=== PATIENT | male | born 1985 | race Caucasian/White ===

== ENCOUNTER 2016-09-24 14:25 | Observation (INO) ==
[2016-09-24] MEDS ORDERED: 0.9 % Sodium Chloride 1,000 ML IVC ONE (14:37)
[2016-09-24 15:17] LABS: Basophils # 0.1 K/mcL (0.0-0.2); Basophils % 0.5 %; Eosinophils # 0.1 K/mcL (0.0-0.6); Eosinophils % 0.8 %; Hematocrit 46.1 % (37.5-50.1); Immature Granulocytes % 0.5 % (0-4); Lymphocytes # 1.3 K/mcL (0.6-4.6); Lymphocytes % 12.1 %; Mean Corpuscular HGB Conc 34.7 g/dL (31.6-35.5); Mean Corpuscular Hemoglobin 30.9 pg (28.0-33.3); Mean Corpuscular Volume 89.2 fL (83.0-100.0); Mean Platelet Volume 9.5 fL (9.4-12.4); Monocytes # 0.9 K/mcL (0.0-1.3); Neutrophils # 8.5 K/mcL (1.6-8.9); Platelet Count 316 K/mcL (140-400); Red Blood Count 5.17 M/mcL (4.19-5.50); Red Cell Distribution Width 11.7 % (11.5-14.5); Segmented Neutrophils % 78.1 %
[2016-09-24 15:31] LABS: Alanine Aminotransferase 43 Units/L (0-55); Albumin 4.3 g/dL (3.5-5.0); Albumin/Globulin Ratio 1.1 (1.1-2.2); Alkaline Phosphatase 99 Units/L (38-126); Aspartate Amino Transferase 36 Units/L (5-34); BUN/Creatinine Ratio 16 (6-26); Bilirubin,Direct 0.4 mg/dL (0.0-0.5); Bilirubin,Indirect 0.5 mg/dL (0.0-1.2); Bilirubin,Total 0.9 mg/dL (0.2-1.2); Blood Urea Nitrogen 21 mg/dL (8-26); Calcium 9.6 mg/dL (8.6-10.8); Carbon Dioxide 27 mEq/L (19-29); Chloride 103 mEq/L (98-109); Globulin 3.8 g/dL (2.4-3.5); Glucose 78 mg/dL (70-99); Osmolality,Calculated 290 (280-300); Sodium 139 mEq/L (136-145); Total Protein 8.1 g/dL (6.0-8.3); eGFR For African Americans > 60 (> 60); eGFR For Non-African Americans > 60 (> 60)
[2016-09-24 15:32] LABS: Acetaminophen < 1.0 mcg/mL (10-30); Ethanol < 10 mg/dL (0-10); Salicylate < 5.0 mg/dL (15-30)
--- NOTE | 2016-09-24 15:54 | Emergency Department Note ---
Overdose - Differential Diagnosis Likely: cocaine intoxication, intentional overdose, accidental drug ingestion - Medical Records Medical records reviewed: Yes I reviewed the patient's medical records. - Lab Data Lab results reviewed: Yes I reviewed the patient's lab results. Result diagrams: 09/24/16 15:02 09/24/16 15:02 Lab Results 09/24/16 09/24/16 Range/Units 15:02 15:02 WBC 10.9 (4.3-11.1) K/mcL RBC 5.17 (4.19-5.50) M/mcL Hgb 16.0 (12.9-16.9) g/dL Hct 46.1 (37.5-50.1) % MCV 89.2 (83.0-100.0) fL MCH 30.9 (28.0-33.3) pg MCHC 34.7 (31.6-35.5) g/dL RDW 11.7 (11.5-14.5) % Plt Count 316 (140-400) K/mcL MPV 9.5 (9.4-12.4) fL Immature Gran % 0.5 (0-4) % Seg Neutrophils % 78.1 % Lymphocytes % 12.1 % Monocytes % 8.0 % Eosinophils % 0.8 % Basophils % 0.5 % Neutrophils # 8.5 (1.6-8.9) K/mcL Lymphocytes # 1.3 (0.6-4.6) K/mcL Monocytes # 0.9 (0.0-1.3) K/mcL Eosinophils # 0.1 (0.0-0.6) K/mcL Basophils # 0.1 (0.0-0.2) K/mcL Sodium 139 (136-145) mEq/L Potassium 4.0 (3.5-4.5) mEq/L Chloride 103 (98-109) mEq/L Carbon Dioxide 27 (19-29) mEq/L BUN 21 (8-26) mg/dL Creatinine 1.30 H (0.72-1.25) mg/dL Est GFR ( Amer) > 60 (> 60) Est GFR (Non-Af Amer) > 60 (> 60) BUN/Creatinine Ratio 16 (6-26) Glucose 78 (70-99) mg/dL Calculated Osmolality 290 (280-300) Calcium 9.6 (8.6-10.8) mg/dL Total Bilirubin 0.9 (0.2-1.2) mg/dL Direct Bilirubin 0.4 (0.0-0.5) mg/dL Indirect Bilirubin 0.5 (0.0-1.2) mg/dL AST 36 H (5-34) Units/L ALT 43 (0-55) Units/L Alkaline Phosphatase 99 (38-126) Units/L Serum Total Protein 8.1 (6.0-8.3) g/dL Albumin 4.3 (3.5-5.0) g/dL Globulin 3.8 H (2.4-3.5) g/dL Albumin/Globulin Ratio 1.1 (1.1-2.2) Salicylates < 5.0 L (15-30) mg/dL Acetaminophen < 1.0 L (10-30) mcg/mL Ethyl Alcohol < 10 (0-10) mg/dL - Radiology Data Radiology results reviewed: Yes I reviewed the patient's radiology results. - EKG Data EKG attestation: Yes I reviewed and interpreted this EKG. EKG shows normal: sinus rhythm Rate: normal Rhythm: NSR [place]/QRS: normal Interpretation: no acute changes Overdose HPI - General Chief Complaint: ED Overdose Stated Complaint: OD Time Seen by Provider: 09/24/16 14:32 Source: patient, EMS Limitations: no limitations Nursing Notes Reviewed: Yes Vital Signs Reviewed: Yes - History of Present Illness Pt Subjective Complaint: accidental overdose Onset (ago): Just SPO[employer] Intent: unwilling to say How Overdose Was Discovered: family/friend present at time Treatments Prior to Arrival: narcan (6 mg) - Related Data Allergies Allergy/AdvReac Type Severity Reaction Status Date / Time No Known Allergies Allergy Verified 09/24/16 14:31 All systems ED: reviewed and negative except as stated. Constitutional: Denies: fever, chills Gastrointestinal: Denies: nausea, vomiting Past Medical History - Past Medical History Source: patient, nursing notes reviewed Medical history: Reports: no medical history - Social History Smoking Status: Current every day smoker Alcohol use: Reports: occasionally Drug use: Reports: none Physical Exam - General Limitations: no limitations General appearance: alert - Head Head exam: atraumatic, normocephalic, normal inspection - Eye Eye exam: Present: normal appearance, PERRL, EOMI - Expanded Eye Exam Pupils: Left: reactive - ENT ENT exam: normal exam, normal oropharynx, mucous membranes moist - Expanded ENT Exam External ear exam: Present: normal external inspection Mouth exam: Present: normal external inspection Teeth exam: Present: normal inspection Throat exam: Present: normal inspection - Neck Neck exam: Present: normal inspection, full ROM, trachea midline - Chest Chest inspection: Present: normal inspection, symmetric chest wall rise - Respiratory Respiratory exam: Present: normal lung sounds bilaterally - Cardiovascular Cardiovascular exam: Present: regular rate, normal rhythm, normal heart sounds - Abdominal Exam Abdominal exam: Present: soft, Non-Tender. Absent: tenderness, distention, guarding, rebound, rigidity - Extremities Exam Extremities exam: Present: normal inspection, full ROM. Absent: tenderness, pedal edema - Expanded Upper Extremity Exam Shoulder exam: Present: normal inspection, full ROM Arm exam: Present: normal inspection, full ROM Elbow exam: Present: normal inspection, full ROM Forearm/Wrist exam: Present: normal inspection, full ROM Hand exam: Present: normal inspection, full ROM Vascular exam: Normal: capillary refill, radial pulse - Expanded Lower Extremity Exam Hip/Pelvis exam: Present: normal inspection, full ROM Upper leg exam: Present: normal inspection, full ROM Knee exam: Present: normal inspection, full ROM Lower leg exam: Present: normal inspection, full ROM Ankle exam: Present: normal inspection, full ROM Foot/toe exam: Present: normal inspection, full ROM Neurovascular/Tendon exam: Absent: motor deficit, sensory deficit, tendon deficit - Back Exam Back exam: Present: normal inspection, full ROM. Absent: tenderness - Neurological Exam Neurological exam: Present: alert, oriented X3 - Expanded Neurological Exam Patient oriented to: Present: person, place, time Coma Scale Eye Opening: Spontaneous Coma Scale Motor Response: Obeys Commands Coma Scale Verbal Response: Oriented Coma Scale Total: 15 - Psychiatric Psychiatric exam: Present: normal affect, normal mood - Skin Skin exam: Present: warm, dry, intact, normal color Course Course Narrative: Patient has received a total of 10 mg of Narcan he will wake up for 10-15 minutes and then go back to sleep. He is arousable but I feel that he is to unsafe for discharge home and will admit him to the hospitalist service for overnight observation Vital Signs Temperature 97.6 F 09/24/16 14:27 Pulse Rate 90 09/24/16 14:27 Respiratory Rate 16 09/24/16 14:27 Blood Pressure 105/98 09/24/16 14:27 O2 Sat by Pulse Oximetry 94 09/24/16 14:27 Temperature 97.6 F 09/24/16 14:27 Pulse Rate 70 09/24/16 16:32 Respiratory Rate 16 09/24/16 16:32 Blood Pressure 128/67 09/24/16 16:32 O2 Sat by Pulse Oximetry 97 09/24/16 16:32 Oxygen Delivery Oxygen Delivery Room Air Disposition Clinical Impression: Poisoning by opiate or related narcotic Disposition: Admitted As Inpatient Condition: Good Instructions: Adult Overdose (ED) Referrals: NO,PCP [Primary Care Provider] - Forms: ED Satisfaction Letter Time of Disposition: 15:52
[2016-09-24 18:13] LABS: Bilirubin,Urine Negative (Negative); Blood,Urine Negative (Negative); Clarity,Urine Clear (Clear); Color,Urine Yellow (Yellow); Glucose,Urine (UA) Normal (Normal); Ketones,Urine 40 mg/dL (Negative); Leukocyte Esterase,Urine Negative (Negative); Nitrite,Urine Negative (Negative); PH,Urine 5.5 pH Units (5.0-8.0); Protein,Urine Negative (Neg-Trace); Specific Gravity,Urine 1.012 (1.010-1.025); Urobilinogen,Urine Normal (Normal)
[2016-09-24 18:31] LABS: Amphetamine Screen,Urine Negative ng/mL (Cutoff=1000); Barbiturate Screen,Urine Negative ng/mL (Cutoff=200); Benzodiazepines Screen,Urine Positive ng/mL (Cutoff=200); Cannabinoid Screen,Urine Positive ng/mL (Cutoff = 50); Cocaine Screen,Urine Positive ng/mL (Cutoff= 300); Opiate Screen,Urine Positive ng/mL (Cutoff=300); Phencyclidine Screen,Urine Negative ng/mL (Cutoff=25)
[2016-09-24] MEDS ORDERED: Acetaminophen 325 MG TABLET PO PRN (20:52)
[2016-09-24] MEDS ORDERED: Naloxone 0.4 MG/ML INJ IVP PRN (20:52)
[2016-09-24] MEDS ORDERED: *HR* LORazepam 2 MG/ML VIAL IVP PRN ×3 (20:55→21:56)
[2016-09-24] MEDS ORDERED: 0.9 % Sodium Chloride 1,000 ML IVC SCH (21:00)
--- NOTE | 2016-09-24 21:11 | Event Note ---
Date of Encounter: 09/24/16
--- NOTE | 2016-09-24 21:14 | Internal Med History&Physical ---
<Ricardo Moreland - Last Filed: 09/24/16 21:55> Date of Encounter: 09/24/16 Time of Encounter: 08:30 Assessment and Plan (1) Drug overdose Current visit: Yes Status: Acute - Found decreased mentation by EMS with only temporary response to Narcan in ED. - UDS positive for opiates, benzodiazepam, cocaine and marijuana. - Patient only admits Xanax and marijuana and denies pain medication or IV drug use. - Mental status improves as patient now is more awake. - Patient denies depression or suicidal ideation at this time. - Patient is admitted for overnight observation given the safety concern. - Closely monitor with telemetry. Qualifiers: Encounter type: initial encounter Injury intent: undetermined intent Qualified Code(s): T50.904A - Poisoning by unspecified drugs, medicaments and biological substances, undetermined, initial encounter (2) GALILEA (acute kidney injury) Current visit: Yes Status: Acute - SCr 1.30 on initial presentation compared to baseline (0.90) in the past. - Likely secondary to dehydration. Early phase of rhabdomylosis from drug overdose is also possible. - Will check CK. - Continue to hydration with IV NS. - Closely monitor electrolytes and renal function. (3) Alcohol abuse Current visit: Yes Status: Acute - Heavy alcohol use with 6-pack beers a day and last alcohol use was last night. - Will start patient on CIWA protocol with close monitoring. - Also give multi-vitamin supplement for possible underlying nutrient deficiency. (4) Tobacco abuse Current visit: Yes Status: Acute - Patient smokes 1 pack per day for 15 years. - Smoking cessation counseling. - Will give nicotine patch during his hospital stay. (5) Polysubstance abuse Current visit: Yes Status: Acute - Including alcohol, tobacco, marijuana, benzodiazepam and possible opiates and cocaine. - Will consult social service and appreciate providing resources and assistance after discharge. Internal Medicine - H&P: HPI Chief complaint: Overdose Admitted From: Emergency Dept Plans for Post Hospital Care: Home History of present illness: Mr. Orosco is a 30 year old male with significant PMH. Patient was brought to [facility] ED for what appeared to be overdose. Patient received 6 mg of Narcan by EMS and additional 4 mg of Narcan in ED. Patient was awake right after Narcan but soon fell back to sleep in ED therefore patient is admitted for further observation. Of the encounter in 2NE, patient is alert and oriented with minimal somnolence. Patient states he passed out when he was setting up his room and denies chest pain/discomfort, palpitation, dyspnea prior to loss of consciousness. Patient admits marijuana and Xanax use but denies pain medication or other illicit or IV drug use. Patient usually drinks 6-pack beers a day and last EtOH use was last night. Patient denies depression or suicidal ideation at this time. He states having remote history of seizure during his childhood. Phone call to emergency contact number listed (patient's grandmother Gris) was made but no one picked the phone. Past Med Surg Social Fam HX - Past Medical History Medical history: no medical history - Past Surgical History Surgical History: other (Metal plate of Jaw, right ankle ORIF) - Social History Smoking Status: Current every day smoker Packs per day: 1 pack per day since age 15 Alcohol use: heavy (6-pack beers a day, last use was the night prior to admission.) Drug use: marijuana, prescription drug abuse (Xanax) - Family History Mother Living Status: Still Living Hx Family Cardiac Disorders: Yes (Vascular disorder) Internal Medicine - H&P: Meds No Known Home Drugs 09/24/16 [History] Allergies No Known Allergies Allergy (Verified 09/24/16 14:31) All Systems PM: A 10-system review of systems was performed and is negative for pertinent findings except as documented above in the HPI. - Constitutional Constitutional: chills, no fever(s), no weight gain, no weight loss - EENT Eyes: no change in vision Ears: no decreased hearing Nose, mouth and throat: no dysphagia, no odynophagia - Cardiovascular Cardiovascular ROS IM: no chest pain, no edema, no lightheadedness, no palpitations - Respiratory Respiratory: no cough, no dyspnea, no hemoptysis - Gastrointestinal Gastrointestinal: no abdominal pain, no diarrhea, no hematochezia, no melena, no nausea, no vomiting - Genitourinary Genitourinary ROS male: dysuria (Patient thinks it's because he was on [place] in ED.), no difficulty urinating, no hematuria - Musculoskeletal Musculoskeletal ROS IM: no arthralgias, no myalgias - Integumentary Integumentary IM: no pruritus, no rash - Neurological Neurological ROS: no focal weakness, no numbness, no tingling - Hematologic/Lymphatic Hematologic/Lymphatic: no easy bleeding, no easy bruising - Constitutional Vitals: Temp Pulse Resp BP Pulse Ox 98.2 F 58 16 122/66 97 09/24/16 20:55 09/24/16 20:55 09/24/16 20:55 09/24/16 20:55 09/24/16 20:55 General appearance: Present: cooperative, A&O X 3, no acute distress - Head Head exam: Present: atraumatic, normocephalic - Eye Eye exam: Present: EOMI, PERRL, conjuntiva pink, sclera anicteric Pupils: Present: mydriatic - Neck Neck exam general surgery: Present: supple, trachea midline. Absent: lymphadenopathy - Respiratory Respiratory exam: Present: CTAB. Absent: accessory muscle use, rales, rhonchi, wheezes - Cardiovascular Cardiovascular exam: Present: RRR, +S1, +S2. Absent: diastolic murmur, gallop, rubs, systolic murmur - GI/Abdominal GI/Abdominal exam: Present: normal bowel sounds, soft, tenderness (RLQ), no peritoneal signs. Absent: distended - Extremities Exam Extremities exam: Present: warm, radial pulses palpable and symetrical. Absent : calf tenderness, cyanotic, pedal edema - Neurological Exam Neurological exam: Present: CN II-XII intact, oriented X3, no focal deficits. Absent: pronater drift, facial droop, speech deficit - Skin Skin exam: Present: dry, intact, warm Internal Med - H&P Results - Labs CBC & Chem 7: 09/24/16 15:02 09/24/16 15:02 Labs: Short CBC 09/24/16 Range/Units 15:02 WBC 10.9 (4.3-11.1) K/mcL Hgb 16.0 (12.9-16.9) g/dL Hct 46.1 (37.5-50.1) % Plt Count 316 (140-400) K/mcL Neutrophils # 8.5 (1.6-8.9) K/mcL BMP 09/24/16 Range/Units 15:02 Sodium 139 (136-145) mEq/L Potassium 4.0 (3.5-4.5) mEq/L Chloride 103 (98-109) mEq/L Carbon Dioxide 27 (19-29) mEq/L BUN 21 (8-26) mg/dL Creatinine 1.30 H (0.72-1.25) mg/dL Glucose 78 (70-99) mg/dL Calcium 9.6 (8.6-10.8) mg/dL Liver Function 09/24/16 Range/Units 15:02 Total Bilirubin 0.9 (0.2-1.2) mg/dL Direct Bilirubin 0.4 (0.0-0.5) mg/dL AST 36 H (5-34) Units/L ALT 43 (0-55) Units/L Alkaline Phosphatase 99 (38-126) Units/L Albumin 4.3 (3.5-5.0) g/dL Urine 09/24/16 Range/Units 18:00 Urine Color Yellow (Yellow) Urine Clarity Clear (Clear) Urine pH 5.5 (5.0-8.0) pH Units Ur Specific [place] 1.012 (1.010-1.025) Urine Protein Negative (Neg-Trace) mg/dL Urine Glucose (UA) Normal (Normal) mg/dL - EKG Data -: EKG Interpreted by Myself EKG shows normal: sinus rhythm Rate: normal - EKG Data Prior EKG available for review: no EKG comments: 09/24/16 21:37 HR 88, IA 160, QRS 74, sinus rhythm, no significant ischemic change. - Impressions Impressions Head CT 09/24/16 14:41 IMPRESSION: No acute intracranial abnormality. D/ / Edmar Doty MD / Edmar Doty MD Interpreting Provider: Edmar Doty MD <EppsSebastián Cabrera - Last Filed: 09/25/16 00:06> Date of Encounter: 09/24/16 Internal Medicine - H&P: HPI History of present illness: Mr. Orosco is a 30 year old male strained significant for alcohol dependence unspecified, depressive disorder unspecified, nicotine dependency, etc.. The patient is admitted to the [facility] via the emergency department when he presented via EMS services from home with complaints of alteration in mental status with lethargy and confusion. Patient was discovered by family/ friend report that there was an unintentional overdose of recreational drugs. The patient was administered intranasal Narcan via EMS services (6 mg) prior to his arrival to the ED. He received an additional 4 mg of Narcan in the ED. He was found to be intermittently alert, oriented and responsive and would drift off to sleep fairly promptly.. Glascow coma scale total 15. Initial screening studies (CBC with differential, comprehensive metabolic panel, telemetry/ECG, CT head scan without contrast) were benign. Alcohol less than 10. Acetaminophen less than 1. Salicylates less than 5. UDS positive for opiates, benzodiazepine, cocaine, marijuana. Vital signs stable. The patient is at risk for further acute clinical decline given his presenting chief complaints, clinical findings and comorbidities. Workup and treatment progress comprehensively. The patient was visited and interviewed and examined. Intoxicated with associated mild delirium noted. He was found to be limited (if not evasive) historian of current circumstances and events. I examined this patient and my medical decision-making was reviewed with the Resident Physician, Dr. Ricardo Moreland. For this encounter, I have reviewed the documentation, treatment plan, and medical decision making. I have had face to face time with this patient. Cumulative laboratory and radiographic database was reviewed, considered and discussed. I agree with the documented findings, disposition and treatment plan as described except to the extent set forth below. Consultative opinions will be sought as clinical circumstances justify. Given the patient's presenting concerns, past medical history, clinical findings and symptoms, he is admitted at this time to undergo further evaluation and disposition. Condition is serious. Prognosis is guarded. CODE STATUS is full. Past Med Surg Social Fam HX - Past Medical History Source: old records reviewed Medical history: other Psychiatric history: anxiety, depression, other - Past Surgical History Surgical History: non-contributory - Social History Drug use: cocaine, opiates, other Occupational status: unemployed Current living situation: Home - Independent, Other Activity Level: Independent ambulation, Mostly sedentary Recent Out of Country Travel Within the Last 8 Weeks: No Exposure or Possible Exposure to Illness During Travel: No ROS unobtainable: due to mental status All Systems PM: A 10-system review of systems was performed and is negative for pertinent findings except as documented above in the HPI. - Constitutional Constitutional: as per HPI - EENT Eyes: as per HPI Ears: as per HPI Nose, mouth and throat: as per HPI - Cardiovascular Cardiovascular ROS IM: as per HPI - Respiratory Respiratory: as per HPI - Gastrointestinal Gastrointestinal: as per HPI - Genitourinary Genitourinary ROS male: as per HPI - Musculoskeletal Musculoskeletal ROS IM: as per HPI - Integumentary Integumentary IM: as per HPI - Neurological Neurological ROS: as per HPI - Psychiatric Psychiatric: as per HPI - Endocrine Endocrine IM: as per HPI - Hematologic/Lymphatic Hematologic/Lymphatic: as per HPI - Allergic/Immunologic Allergic/Immunologic: as per HPI - Constitutional Vitals: Temp Pulse Resp BP Pulse Ox 98.2 F 58 16 122/66 97 09/24/16 20:55 09/24/16 20:55 09/24/16 20:55 09/24/16 20:55 09/24/16 20:55 Vital Signs Temp Pulse Resp BP Pulse Ox 09/24/16 20:55 98.2 F 58 16 122/66 97 09/24/16 19:08 16 119/64 09/24/16 17:32 67 16 117/73 98 09/24/16 16:32 70 16 128/67 97 09/24/16 15:32 73 16 126/57 98 09/24/16 14:38 93 09/24/16 14:27 97.6 F 90 16 105/98 94 Intake and Output 09/24/16 09/24/16 09/24/16 07:59 15:59 23:59 Intake Total 1000 / 1000 Balance 1000 / 1000 Intake: IV Fluids 1000 / 1000 0.9 % Sodium Chloride 1, 1000 / 1000 000 ML @ 3750 mls/hr IVC .Q16M ONE Rx#:[id number] Oral 0 / 0 Other: # Voids 1 Weight 90.718 kg 87.6 kg Patient Weight 09/24/16 23:59 Weight 87.6 kg Internal Med - H&P Results - Labs CBC & Chem 7: 09/24/16 15:02 09/24/16 15:02 Labs: Abnormal lab results Creatinine 1.30 mg/dL (0.72-1.25) H 09/24/16 15:02 AST 36 Units/L (5-34) H 09/24/16 15:02 C-Reactive Protein 34 mg/L (Less than 5) H 09/24/16 22:23 Globulin 3.8 g/dL (2.4-3.5) H 09/24/16 15:02 Urine Ketones 40 mg/dL (Negative) H 09/24/16 18:00 Salicylates < 5.0 mg/dL (15-30) L 09/24/16 15:02 Urine Opiates Screen Positive ng/mL (Jsfeax=294) H 09/24/16 18:02 Acetaminophen < 1.0 mcg/mL (10-30) L 09/24/16 15:02 U Benzodiazepines Scrn Positive ng/mL (Ufgril=252) H 09/24/16 18:02 Urine Cocaine Screen Positive ng/mL (Cutoff= 300) H 09/24/16 18:02 U Marijuana (THC) Screen Positive ng/mL (Cutoff = 50) H 09/24/16 18:02 Laboratory Results WBC 10.9 K/mcL (4.3-11.1) 09/24/16 15:02 RBC 5.17 M/mcL (4.19-5.50) 09/24/16 15:02 Hgb 16.0 g/dL (12.9-16.9) 09/24/16 15:02 Hct 46.1 % (37.5-50.1) 09/24/16 15:02 MCV 89.2 fL (83.0-100.0) 09/24/16 15:02 MCH 30.9 pg (28.0-33.3) 09/24/16 15:02 MCHC 34.7 g/dL (31.6-35.5) 09/24/16 15:02 RDW 11.7 % (11.5-14.5) 09/24/16 15:02 Plt Count 316 K/mcL (140-400) 09/24/16 15:02 MPV 9.5 fL (9.4-12.4) 09/24/16 15:02 Immature Gran % 0.5 % (0-4) 09/24/16 15:02 Seg Neutrophils % 78.1 % 09/24/16 15:02 Lymphocytes % 12.1 % 09/24/16 15:02 Monocytes % 8.0 % 09/24/16 15:02 Eosinophils % 0.8 % 09/24/16 15:02 Basophils % 0.5 % 09/24/16 15:02 Neutrophils # 8.5 K/mcL (1.6-8.9) 09/24/16 15:02 Lymphocytes # 1.3 K/mcL (0.6-4.6) 09/24/16 15:02 Monocytes # 0.9 K/mcL (0.0-1.3) 09/24/16 15:02 Eosinophils # 0.1 K/mcL (0.0-0.6) 09/24/16 15:02 Basophils # 0.1 K/mcL (0.0-0.2) 09/24/16 15:02 Sodium 139 mEq/L (136-145) 09/24/16 15:02 Potassium 4.0 mEq/L (3.5-4.5) 09/24/16 15:02 Chloride 103 mEq/L (98-109) 09/24/16 15:02 Carbon Dioxide 27 mEq/L (19-29) 09/24/16 15:02 BUN 21 mg/dL (8-26) 09/24/16 15:02 Creatinine 1.30 mg/dL (0.72-1.25) H 09/24/16 15:02 Est GFR ( Amer) > 60 (> 60) 09/24/16 15:02 Est GFR (Non-Af Amer) > 60 (> 60) 09/24/16 15:02 BUN/Creatinine Ratio 16 (6-26) 09/24/16 15:02 Glucose 78 mg/dL (70-99) 09/24/16 15:02 Calculated Osmolality 290 (280-300) 09/24/16 15:02 Lactic Acid 0.8 mmol/L (0.5-2.2) 09/24/16 22:23 Calcium 9.6 mg/dL (8.6-10.8) 09/24/16 15:02 Total Bilirubin 0.9 mg/dL (0.2-1.2) 09/24/16 15:02 Direct Bilirubin 0.4 mg/dL (0.0-0.5) 09/24/16 15:02 Indirect Bilirubin 0.5 mg/dL (0.0-1.2) 09/24/16 15:02 AST 36 Units/L (5-34) H 09/24/16 15:02 ALT 43 Units/L (0-55) 09/24/16 15:02 Alkaline Phosphatase 99 Units/L (38-126) 09/24/16 15:02 Creatine Kinase 144 Units/L (30-200) 09/24/16 21:25 Troponin I 0.00 ng/mL (0-0.03) 09/24/16 22:23 C-Reactive Protein 34 mg/L (Less than 5) H 09/24/16 22:23 Serum Total Protein 8.1 g/dL (6.0-8.3) 09/24/16 15:02 Albumin 4.3 g/dL (3.5-5.0) 09/24/16 15:02 Globulin 3.8 g/dL (2.4-3.5) H 09/24/16 15:02 Albumin/Globulin Ratio 1.1 (1.1-2.2) 09/24/16 15:02 TSH 0.765 mcIU/mL (0.350-4.840) 09/24/16 22:23 Prolactin 3.91 ng/mL (3.46-19.40) 09/24/16 22:23 Urine Color Yellow (Yellow) 09/24/16 18:00 Urine Clarity Clear (Clear) 09/24/16 18:00 Urine pH 5.5 pH Units (5.0-8.0) 09/24/16 18:00 Ur Specific [place] 1.012 (1.010-1.025) 09/24/16 18:00 Urine Protein Negative mg/dL (Neg-Trace) 09/24/16 18:00 Urine Glucose (UA) Normal mg/dL (Normal) 09/24/16 18:00 Urine Ketones 40 mg/dL (Negative) H 09/24/16 18:00 Urine Blood Negative (Negative) 09/24/16 18:00 Urine Nitrite Negative (Negative) 09/24/16 18:00 Urine Bilirubin Negative (Negative) 09/24/16 18:00 Urine Urobilinogen Normal mg/dL (Normal) 09/24/16 18:00 Ur Leukocyte Esterase Negative (Negative) 09/24/16 18:00 Salicylates < 5.0 mg/dL (15-30) L 09/24/16 15:02 Urine Opiates Screen Positive ng/mL (Djlkcv=531) H 09/24/16 18:02 Acetaminophen < 1.0 mcg/mL (10-30) L 09/24/16 15:02 Ur Barbiturates Screen Negative ng/mL (Ooqffk=265) 09/24/16 18:02 Ur Phencyclidine Scrn Negative ng/mL (Cutoff=25) 09/24/16 18:02 Ur Amphetamines Screen Negative ng/mL (Rhwgdl=1587) 09/24/16 18:02 U Benzodiazepines Scrn Positive ng/mL (Lzraya=593) H 09/24/16 18:02 Urine Cocaine Screen Positive ng/mL (Cutoff= 300) H 09/24/16 18:02 U Marijuana (THC) Screen Positive ng/mL (Cutoff = 50) H 09/24/16 18:02 Ethyl Alcohol < 10 mg/dL (0-10) 09/24/16 15:[address] 09/24/16 14:41 IMPRESSION: No acute intracranial abnormality. D/ / Edmar Doty MD / Edmar Doty MD Interpreting Provider: Edmar Doty MD - Attending Attestation My signature below is to certify that this patient is under my care and that I, or the Resident Physician working with me, has had a [id number] encounter with this patient.
[2016-09-24] MEDS ORDERED: *HR* Promethazine 25 MG/ML VIAL IVP PRN (21:56)
[2016-09-24] MEDS ORDERED: Ketorolac 30 MG/ML VIAL IVP PRN (21:56)
[2016-09-24] MEDS ORDERED: Pantoprazole 40 MG VIAL IVP STA (21:56)
[2016-09-24] MEDS: Nicotine 21 MG PATCH.TD24 TD SCH (22:18)
[2016-09-24 23:10] LABS: Prolactin 3.91 ng/mL (3.46-19.40)
[2016-09-24 23:42] LABS: Thyroid Stimulating Hormone 0.765 mcIU/mL (0.350-4.840)
[2016-09-25 04:22] LABS: Alanine Aminotransferase 32 Units/L (0-55); Albumin/Globulin Ratio 1.1 (1.1-2.2); Alkaline Phosphatase 81 Units/L (38-126); Aspartate Amino Transferase 25 Units/L (5-34); BUN/Creatinine Ratio 16 (6-26); Bilirubin,Total 1.3 mg/dL (0.2-1.2); Blood Urea Nitrogen 15 mg/dL (8-26); Calcium 8.4 mg/dL (8.6-10.8); Carbon Dioxide 21 mEq/L (19-29); Carbon Dioxide 22 mEq/L (19-29); Chloride 108 mEq/L (98-109); Globulin 3.1 g/dL (2.4-3.5); Glucose 116 mg/dL (70-99); Glucose 120 mg/dL (70-99); Magnesium 1.9 mg/dL (1.6-2.6); Osmolality,Calculated 286 (280-300); Phosphorous 2.4 mg/dL (2.3-4.7); Potassium 3.3 mEq/L (3.5-4.5); Potassium 3.4 mEq/L (3.5-4.5); Sodium 137 mEq/L (136-145); eGFR For African Americans > 60 (> 60); eGFR For Non-African Americans > 60 (> 60)
[2016-09-25 04:24] LABS: Albumin 3.3 g/dL (3.5-5.0); Total Protein 6.4 g/dL (6.0-8.3)
[2016-09-25 07:12] VITALS: BP 103/56
[2016-09-25] MEDS: Nicotine 21 MG PATCH.TD24 TD SCH (08:46)
[2016-09-25] MEDS ORDERED: Vitamin B Complex/Vit C/Vit E 1 EACH TABLET PO SCH (09:00)
[2016-09-25] MEDS ORDERED: Folic Acid 1 MG TABLET PO SCH (09:00)
--- NOTE | 2016-09-25 09:45 | Discharge Summary ---
<Michael Barboza - Last Filed: 09/25/16 09:35> Date of Encounter: 09/25/16 Time of Encounter: 09:30 - Discharge Diagnosis (1) Drug overdose Priority: Primary Status: Acute Qualifiers: Encounter type: initial encounter Injury intent: undetermined intent Qualified Code(s): T50.904A - Poisoning by unspecified drugs, medicaments and biological substances, undetermined, initial encounter (2) Polysubstance abuse Priority: Primary Status: Acute (3) GALILEA (acute kidney injury) Priority: Primary Status: Acute (4) Tobacco abuse Priority: Secondary Status: Chronic - Discharge Medications Prescriptions: Folic Acid 1 mg PO DAILY #30 tablet Nicotine Patch [Nicoderm] 21 mg TD DAILY #30 patch.td24 Vitamin B Complex/Vit C/Vit E [Stresstab] 1 each PO DAILY #30 tablet Home Medications: Folic Acid 1 mg PO DAILY #30 tablet 09/25/16 [Rx] Nicotine Patch [Nicoderm] 21 mg TD DAILY #30 patch.td24 09/25/16 [Rx] Vitamin B Complex/Vit C/Vit E [Stresstab] 1 each PO DAILY #30 tablet 09/25/16 [ Rx] Allergies/Adverse Reactions: Allergies No Known Allergies Allergy (Verified 09/24/16 14:31) Date of admission: 09/24/16 18:46 Primary care physician: PCP NO Consults: 09/24/16 20:55 Consult to Middle [employer] Baseball Coach [CONS] Routine Reason for SW Consult: Polysubstance abuse including EtOH, benzodiazepam, opiate, cocaine. Discharging clinician: Greg Sandhu Anticipated date of discharge: 09/25/16 - Patient Status Disposition: Home, Self-Care Condition: Good Functional capacity at discharge: independent ambulation Overall status at discharge: patient is progressing back to baseline - Discharge Instructions Instructions: Folic Acid (By mouth), Nicotine (Absorbed through the skin), How to Stop Smoking (DC), Narcotic Abuse (DC) Follow Up With: Shankar Rocha MD [Non-Partnered Physician] - 10/03/16 11:00 am (1-2 weeks, xanax OD, outpatient rehab) - Diet and Activity Activity: increase activity as tolerated Diet: advance to your usual diet Hospital course: Mr. Orosco is a 30 year old male. Patient would present to [facility] with chief concern: somnolence, in setting of xanax use prompting concern for overdose and polypharmacy. No known prior medical history. Hospital course: Patient was given narcan by EMS, received further doses while hospitalized. He would be started on IVF and monitored closely. UDS disclosed positive opiates, positive benzo, cocaine and THC. Labs disclosed elevated SCr 1.30, and improved to 0.92 with IVF suggesting prerenal GALILEA, resolved. CK was 144 wnl. He would note improved alertness and denies depression or suicidal ideation at this time. Would pass swallow eval and tolerate oral intake without difficulty. Electrolytes monitored and derangements corrected. Imaging studies disclosed: Head CT 09/24/16 14:41 IMPRESSION: No acute intracranial abnormality. instructional support services director consult regarding inpatient rehab and resources. Per documentation: Patient lives with uncle and states uncle is a good source of support. Asif has called uncle and left a message regarding need for ride home. Patient stated he went to [facility] ([facility]) in 2013, but is not currently connected to treatment. Patient was not open to SW assisting with linkage to treatment center, but was willing to let SW leave a handout of [facility] substance abuse resources. CARBON CUTTER encouraged patient to consider outpatient treatment is not interested in inpatient treatment. At time of discharge, patient was clinically improved, hemodynamically stable, progressing to baseline, and agreeable with plan of care. Patient was advised to seek immediate medical attention for any new or worsening symptoms including but not limited to fever, chills, chest pain, chest pressure, dyspnea, cough, abdominal pain, nausea, vomiting, diarrhea, bloody stool, urine and the patient voiced understanding. Patient will follow-up with primary care physician: Shankar Rocha M.D. He was offered inpatient rehab and he elects to pursue on outpatient basis. He was offered NRT to aid in smoking cessation. - Time Spent with Patient Total time spent providing and/or coordinating discharge services: - Constitutional Vitals: Temp Pulse Resp BP Pulse Ox 97.6 F 62 15 103/56 94 09/25/16 07:10 09/25/16 07:10 09/25/16 07:10 09/25/16 07:10 09/25/16 07:10 General appearance: Present: cooperative, A&O X 3, no acute distress - Head Head exam: Present: atraumatic, normocephalic - Eye Eye exam: Present: EOMI - Respiratory Respiratory exam: Present: CTAB. Absent: rhonchi, wheezes - Cardiovascular Cardiovascular exam: Present: +S1, +S2. Absent: JVD - Extremities Exam Extremities exam: Absent: mottling, pedal edema <Phoebe,Greg P - Last Filed: 09/25/16 16:57> Date of Encounter: 09/25/16 Date of admission: 09/24/16 18:46 Primary care physician: PCP NO Consults: 09/24/16 20:55 Consult to Middle [employer] Baseball Coach [CONS] Routine Reason for SW Consult: Polysubstance abuse including EtOH, benzodiazepam, opiate, cocaine. Hospital course: Mr. Orosco is a 30 year old male - Time Spent with Patient Total time spent providing and/or coordinating discharge services: - Constitutional Vitals: Temp Pulse Resp BP Pulse Ox 97.6 F 62 15 103/56 94 09/25/16 07:10 09/25/16 07:10 09/25/16 07:10 09/25/16 07:10 09/25/16 07:10 - Attending Attestation I examined this patient and my medical decision-making was reviewed with the HOIST OPERATOR/PA/Advanced Practice Nurse/Resident Physician. I agree with the documented findings, disposition and treatment plan as described except to the extent set forth below.
[2016-09-25] MEDS ORDERED: Thiamine (B-1) 100 MG, Folic Acid 1 MG, MVI, adult with vitamin K 10 ML in 0.9 % Sodi... IVPB SCH ×2 (18:00)
--- NOTE | 2016-09-25 18:19 | Electrocardiograph Report ---
[address] [address] Test Date: 2016-09-24 Pat Name: Zenon Orosco Department: 105 Room: 2NE28 Gender: M Manager Brand: MSC : [id number] Requested By: Saroj Agudelo Order Number: [id number] Reading MD: Sid Villar MD Measurements Intervals [place] Rate: 74 P: 43 ME: 154 QRS: 58 QRSD: 92 T: 36 QT: 388 QTc: 416 Interpretive Statements SINUS RHYTHM Electronically Signed On 09-25-2016 18:18:20 EDT by Sid Villar MD
== END 2016-09-25 11:15 | disposition home or self-care (01) ==
LOC: 2NENU 14:25 → EMEROO 14:25 → 2NENU 20:15
PROVIDERS: ADMIT Internal Medicine; ATTEND Internal Medicine

== ENCOUNTER 2017-02-10 23:19 | Observation (INO) ==
[2017-02-11] MEDS: 0.9 % Sodium Chloride 1,000 ML IVC SCH ×5 (00:04→20:50)
[2017-02-11 00:09] LABS: Basophils # 0.1 K/mcL (0.0-0.2); Basophils % 0.4 %; Eosinophils % 0.2 %; Hemoglobin 12.2 g/dL (12.9-16.9); Immature Granulocytes % 0.6 % (0-4); Lymphocytes # 2.4 K/mcL (0.6-4.6); Lymphocytes % 17.1 %; Mean Corpuscular HGB Conc 33.9 g/dL (31.6-35.5); Mean Corpuscular Hemoglobin 28.9 pg (28.0-33.3); Mean Corpuscular Volume 85.3 fL (83.0-100.0); Mean Platelet Volume 9.3 fL (9.4-12.4); Monocytes # 0.8 K/mcL (0.0-1.3); Monocytes % 5.7 %; Neutrophils # 10.6 K/mcL (1.6-8.9); Platelet Count 329 K/mcL (140-400); Red Blood Count 4.22 M/mcL (4.19-5.50); Red Cell Distribution Width 12.2 % (11.5-14.5)
[2017-02-11] MEDS ORDERED: SULFAMETHOXAZOLE IVPB ONE (00:09)
[2017-02-11] MEDS ORDERED: TRIMETH IVPB ONE (00:09)
[2017-02-11] MEDS ORDERED: D5 IVPB ONE (00:09)
[2017-02-11] MEDS ORDERED: Vancomycin 1,000 MG in D5% in Water 250 ML IVPB ONE (00:09)
[2017-02-11] MEDS ORDERED: WATER IVPB ONE (00:09)
[2017-02-11 00:14] LABS: INR 1.3; Prothrombin Time 13.6 Seconds (9.4-12.1)
[2017-02-11 00:16] LABS: Activated Partial Thrombo Time 30.8 Seconds (26.0-36.0)
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
[2017-02-11 00:52] LABS: Alanine Aminotransferase 23 Units/L (0-55); Albumin 3.1 g/dL (3.5-5.0); Albumin/Globulin Ratio 0.7 (1.1-2.2); Alkaline Phosphatase 106 Units/L (38-126); Aspartate Amino Transferase 18 Units/L (5-34); BUN/Creatinine Ratio 15 (6-26); Bilirubin,Direct 0.2 mg/dL (0.0-0.5); Bilirubin,Indirect 0.2 mg/dL (0.0-1.2); Bilirubin,Total 0.4 mg/dL (0.2-1.2); Blood Urea Nitrogen 12 mg/dL (8-26); Calcium 9.5 mg/dL (8.6-10.8); Carbon Dioxide 23 mEq/L (19-29); Chloride 104 mEq/L (98-109); Globulin 4.7 g/dL (2.4-3.5); Glucose 137 mg/dL (70-99); Magnesium 2.1 mg/dL (1.6-2.6); Osmolality,Calculated 292 (280-300); Phosphorous 3.8 mg/dL (2.3-4.7); Potassium 3.3 mEq/L (3.5-4.5); Sodium 140 mEq/L (136-145); Total Protein 7.8 g/dL (6.0-8.3); eGFR For African Americans > 60 (> 60); eGFR For Non-African Americans > 60 (> 60)
[2017-02-11 00:53] LABS: Lipase < 10 Units/L (8-78)
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
--- NOTE | 2017-02-11 03:34 | Event Note ---
Date of Encounter: 02/11/17 Time of Encounter: 03:33 Patient and examined with medical manager. IV drug abuser has hand cellulitis and abscess formation. We will keep NPO for orthopedic intervention in the morning. Vancomycin and Zosyn. Cultures.
[2017-02-11] MEDS ORDERED: Vancomycin (wt based) 1,000 MG VIAL IVPB SCH (04:00)
[2017-02-11] MEDS ORDERED: Ondansetron 4 MG/2 ML VIAL IVP PRN (04:25)
[2017-02-11] MEDS: Piperacillin/Tazobactam 3.375 GM in D5% in Water (Mini-Bag+) 100 ML IVPB SCH ×3 (09:18→23:07)
--- NOTE | 2017-02-11 09:54 | Internal Med Progress Note ---
<Carlitos Ellis - Last Filed: 02/11/17 10:31> Date of Encounter: 02/11/17 Time of Encounter: 09:54 - Assessment and plan (1) Abscess of skin or subcutaneous tissue Current Visit: Yes Status: Acute Assessment and plan: Patient presented with reported fevers of 103F and pain/infection of left hand to the ED. CT left hand revealed abscess along the dorsal aspect of the left hand measuring 2.3 x 0.7x 2.3 cm and adjacent cellulitis, no osteomyelitis. WBC elevated at 14.0 on arrival, CRP 104, ESR 107, Lactic acid 1.8 on arrival Tachycardia 114 on arrival Temp 99.8, has been afebrile since arrival -Blood cultures pending -Wound culture ordered. -Ortho consulted by night team for I&D -Continue broad spectrum antibiotics, Vancomycin and Zosyn -Continue following labs -Continue monitoring vitals. Qualifiers: Site of cutaneous abscess: extremity Site of cutaneous abscess of extremity : upper extremity Laterality: left Qualified Code(s): L02.414 - Cutaneous abscess of left upper limb (2) SIRS (systemic inflammatory response syndrome) Current Visit: Yes Status: Acute Assessment and plan: Likely source: Left hand infection Tachycardic 114, WBC 14.0, Lactic acid 1.8, Temp 99.8 on arrival. Reportedly had fever to 103F prior to arrival, but has otherwise be afebrile since admission without antipyretics -Continue broad spectrum antibiotics -Continue monitoring vitals and labs (3) Cellulitis of left hand Current Visit: Yes Status: Acute Assessment and plan: Noted cellulitis of Left hand. Contineu per plan in assessments above. (4) Tobacco abuse Current Visit: Yes Status: Chronic Assessment and plan: Counseled patient on tobacco cessation, patient does not want patch at this time. (5) IV drug abuse Current Visit: Yes Status: Acute Assessment and plan: Known history of IV drug abuse. Inciting incident about 02/08/17, injected percocet into left hand vein. (6) DVT prophylaxis Current Visit: Yes Status: Acute Assessment and plan: Encourage ambulation. - Subjective Interval history: Patient reports doing well since admission. Continues to reports pain of his left hand and is unable to fully close his left hand due to pain and swelling. Patient reports that he shot up Percocets about 3 days ago, has done that before , but has never had skin infection or abscess in the past. Patient denies fevers, chills, sweats, headaches, lightheadedness, changes in vision, nausea, vomiting, chest pain, shortness of breath, abdominal pain, changes in bowels, diarrhea, dysuria, changes in urination, or loss of sensation. - Constitutional Vitals: Temp Pulse Resp BP Pulse Ox 97.7 F 65 16 114/69 97 02/11/17 07:02/11/17 07:16 02/11/17 07:16 02/11/17 07:02/11/17 07:16 General appearance: Present: cooperative, A&O X 3, pleasant, no acute distress, answers questions appropriately - Head Head exam: Present: atraumatic, normal inspection, normocephalic - Eye Eye exam: Present: EOMI, normal appearance, PERRL - ENT ENT exam: Present: mucous membranes moist, normal exam, normal oropharynx - Neck Neck exam general surgery: Present: full ROM, normal inspection, supple, trachea midline. Absent: lymphadenopathy, tenderness - Respiratory Respiratory exam: Present: CTAB. Absent: rales, respiratory distress, rhonchi, wheezes, tachypnea - Cardiovascular Cardiovascular exam: Present: RRR, +S1, +S2. Absent: diastolic murmur, JVD, systolic murmur - GI/Abdominal GI/Abdominal exam: Present: normal bowel sounds, soft. Absent: distended, guarding, tenderness - Extremities Exam Extremities exam: Present: full ROM, normal capillary refill, normal inspection (except as noted otherwise), tenderness, warm, radial pulses palpable and symmetrical. Absent: pedal edema Additional comments: Left dorsal hand with large patch of erythema and swelling over MCPs, 2cm x 1.5 cm large fluctuant and tenderness nondraining cyst vs abscess under skin, non mobile, tenderness to palpation over dorsal aspect of hand, no extension into digits, normal perfusion and sensation, unable to fully close left hand due to pain. - Neurological Exam Neurological exam: Present: alert, normal gait, oriented X3, no focal deficits, strengths equal and symetr throughout. Absent: facial droop, speech deficit - Psychiatric Psychiatric exam: Present: normal affect, normal mood - Skin Skin exam: Present: dry, intact, normal color, warm. Absent: rash Additional comments: except as noted above. Internal Medicine: Result - Labs CBC & Chem 7: 02/11/17 00:01 02/11/17 00:11 - ABG Interpretation ABG results: PT/INR, D-dimer PT 13.6 Seconds (9.4-12.1) H 02/11/17 00:01 - Impressions Impressions Hand CT 02/11/17 23:42 IMPRESSION: 1. There is an abscess noted along the dorsal aspect of the left hand, at the level of the carpals measuring approximately 2.3 x 0.7 x 2.3 cm. There is an adjacent cellulitis. 2. No evidence of osteomyelitis. D/ / 02/11/2017 07:57:13 Lio Sepulveda MD / alayna Interpreting Provider: Lio Sepulveda MD Consult Discharge Plan - Plan Referrals: Shankar Rocha MD [Primary Care Provider] - 02/20/17 11:00 am <Edmund Miranda H - Last Filed: 02/12/17 14:22> Date of Encounter: 02/12/17 - Constitutional Vitals: Temp Pulse Resp BP Pulse Ox 97.9 F 89 18 118/63 100 02/12/17 12:00 02/12/17 12:00 02/12/17 12:00 02/12/17 12:00 02/12/17 12:00 Internal Medicine: Result - Labs CBC & Chem 7: 02/12/17 07:09 02/12/17 07:09 Labs: Short CBC 02/12/17 Range/Units 07:09 WBC 10.2 (4.3-11.1) K/mcL Hgb 13.8 D (12.9-16.9) g/dL Hct 41.0 (37.5-50.1) % Plt Count 357 (140-400) K/mcL Neutrophils # 6.3 (1.6-8.9) K/mcL BMP 02/12/17 07:09 Sodium 139 Potassium 3.9 Chloride 109 Carbon Dioxide 22 BUN 8 Creatinine 0.85 Glucose 90 Calcium 9.5 - ABG Interpretation ABG results: PT/INR, D-dimer PT 13.6 Seconds (9.4-12.1) H 02/11/17 00:01 - Impressions Impressions Hand CT 02/11/17 23:42 IMPRESSION: 1. There is an abscess noted along the dorsal aspect of the left hand, at the level of the carpals measuring approximately 2.3 x 0.7 x 2.3 cm. There is an adjacent cellulitis. 2. No evidence of osteomyelitis. D/ / 02/11/2017 07:57:13 Lio Sepulveda MD / alayna Interpreting Provider: Lio Sepulveda MD - Attending Attestation Stable on Zosyn and vancomycin I examined this patient and my medical decision-making was reviewed with the Resident Physician. I agree with the documented findings, disposition and treatment plan as described except to the extent set forth below.
--- NOTE | 2017-02-11 13:50 | Electrocardiograph Report ---
[place] [id number] Test Date: 2017-02-10 Pat Name: Zenon Orosco Department: 105 Room: 3A55 Gender: M [employer]: ANUM : 1985 Requested By: Katharina Gonsalez Order Number: [id number] Reading MD: Dina Hooks Measurements Intervals [place] Rate: 97 P: 50 ID: [id number] QRS: 55 QRSD: 89 T: 10 QT: 337 QTc: 391 Interpretive Statements SINUS RHYTHM WITH MARKED SINUS ARRHYTHMIA LEFT ATRIAL ENLARGEMENT [-0.15mV P WAVE IN V1/V2] Electronically Signed On 02-11-2017 13:49:01 EDT by Dina Hooks
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
[2017-02-11] MEDS: Vancomycin 1,250 MG in D5% in Water 250 ML IVPB SCH ×2 (15:11→23:14)
[2017-02-11] MEDS: Ketorolac 30 MG/ML VIAL IVP PRN ×2 (16:15→23:07)
--- NOTE | 2017-02-12 06:59 | Internal Med Progress Note ---
<Carlitos Ellis - Last Filed: 02/12/17 10:10> Date of Encounter: 02/12/17 Time of Encounter: 06:58 - Assessment and plan (1) Abscess of skin or subcutaneous tissue Current Visit: Yes Status: Acute Assessment and plan: Patient presented with reported fevers of 103F and pain/infection of left hand to the ED. CT left hand revealed abscess along the dorsal aspect of the left hand measuring 2.3 x 0.7x 2.3 cm and adjacent cellulitis, no osteomyelitis. WBC elevated at 14.0 on arrival, CRP 104, ESR 107, Lactic acid 1.8 on arrival Tachycardia 114 on arrival Temp 99.8 on arrival CBC ordered this morning, no result yet. Patient has been afebrile since arrival. Underwent I&D per [facility] 02/11/17, cultures of deep tissues were sent. -Blood cultures pending -Wound culture ordered. (Called lab this morning received Left hand wound cultures and blood cultures.) -Stop Vancomycin d2 and Zosyn d2 -Start Doxycycline d0 -Continue following labs -Continue monitoring vitals -Orthopedics on board Qualifiers: Site of cutaneous abscess: extremity Site of cutaneous abscess of extremity : upper extremity Laterality: left Qualified Code(s): L02.414 - Cutaneous abscess of left upper limb (2) SIRS (systemic inflammatory response syndrome) Current Visit: Yes Status: Acute Assessment and plan: Resolved, uncertain todays WBC, but tachycardia resolved. Likely source: Left hand infection Tachycardic 114, WBC 14.0, Lactic acid 1.8, Temp 99.8 on arrival. Reportedly had fever to 103F prior to arrival, but has otherwise be afebrile since admission without antipyretics -Continue antibiotics per plan above. -Continue monitoring vitals and labs (3) Cellulitis of left hand Current Visit: Yes Status: Acute Assessment and plan: Noted cellulitis of Left hand. Continue per plan in assessments above. (4) Tobacco abuse Current Visit: Yes Status: Chronic Assessment and plan: Counseled patient on tobacco cessation, patient does not want patch at this time. (5) IV drug abuse Current Visit: Yes Status: Acute Assessment and plan: Known history of IV drug abuse. Inciting incident about 02/08/17, injected percocet into left hand vein. (6) DVT prophylaxis Current Visit: Yes Status: Acute Assessment and plan: Encourage ambulation. - Subjective Interval history: Patient reports doing well overnight, has been having some pain, but improved since admission. Underwent I&D yesterday, reviewd Dr. Lilly's noted, no exuded pus, but did culture deep tissues. Denies fevers, chills, sweats, headaches, lightheadedness, changes in vision, nausea, vomiting, chest pain, shortness of breath, abdominal pain, changes in bowels, diarrhea, dysuria, changes in urination, or loss of sensation. - Constitutional Vitals: Temp Pulse Resp BP Pulse Ox 97.9 F 61 14 100/62 98 02/12/17 00:58 02/12/17 00:58 02/12/17 00:58 02/12/17 00:58 02/12/17 00:58 General appearance: Present: cooperative, A&O X 3, pleasant, no acute distress, answers questions appropriately - Head Head exam: Present: atraumatic, normal inspection, normocephalic - Eye Eye exam: Present: EOMI, normal appearance - ENT ENT exam: Present: mucous membranes moist, normal exam, normal oropharynx - Neck Neck exam general surgery: Present: full ROM, normal inspection, supple, trachea midline. Absent: tenderness - Respiratory Respiratory exam: Present: CTAB. Absent: rales, rhonchi, wheezes - Cardiovascular Cardiovascular exam: Present: RRR, +S1, +S2. Absent: diastolic murmur, JVD, systolic murmur - GI/Abdominal GI/Abdominal exam: Present: normal bowel sounds, soft. Absent: distended, guarding, tenderness - Extremities Exam Extremities exam: Present: full ROM, normal capillary refill, normal inspection (except otherwise noted), tenderness, warm, radial pulses palpable and symmetrical. Absent: cyanotic, pedal edema Additional comments: Left hand wrapped in gauze, digits normal color, good capillary refill, normal sensation and motion, decreased ROM with fist closure. - Neurological Exam Neurological exam: Present: alert, oriented X3, no focal deficits, strengths equal and symetr throughout. Absent: facial droop, speech deficit - Psychiatric Psychiatric exam: Present: normal affect, normal mood - Skin Skin exam: Present: dry, intact (except as otherwise noted above), normal color , warm. Absent: diaphoretic, rash Internal Medicine: Result - Labs CBC & Chem 7: 02/12/17 07:09 02/12/17 07:09 - ABG Interpretation ABG results: PT/INR, D-dimer PT 13.6 Seconds (9.4-12.1) H 02/11/17 00:01 - Impressions Impressions Hand CT 02/11/17 23:42 IMPRESSION: 1. There is an abscess noted along the dorsal aspect of the left hand, at the level of the carpals measuring approximately 2.3 x 0.7 x 2.3 cm. There is an adjacent cellulitis. 2. No evidence of osteomyelitis. D/ / 02/11/2017 07:57:13 Loi Sepulveda MD / alayna Interpreting Provider: Lio Sepulveda MD Consult Discharge Plan - Plan Referrals: Shankar Rocha MD [Primary Care Provider] - 02/20/17 11:00 am <Edmund Miranda - Last Filed: 02/12/17 14:23> Date of Encounter: 02/12/17 - Constitutional Vitals: Temp Pulse Resp BP Pulse Ox 97.9 F 89 18 118/63 100 02/12/17 12:00 02/12/17 12:00 02/12/17 12:00 02/12/17 12:00 02/12/17 12:00 Internal Medicine: Result - Labs CBC & Chem 7: 02/12/17 07:09 02/12/17 07:09 Labs: Short CBC 02/12/17 Range/Units 07:09 WBC 10.2 (4.3-11.1) K/mcL Hgb 13.8 D (12.9-16.9) g/dL Hct 41.0 (37.5-50.1) % Plt Count 357 (140-400) K/mcL Neutrophils # 6.3 (1.6-8.9) K/mcL BMP 02/12/17 07:09 Sodium 139 Potassium 3.9 Chloride 109 Carbon Dioxide 22 BUN 8 Creatinine 0.85 Glucose 90 Calcium 9.5 - ABG Interpretation ABG results: PT/INR, D-dimer PT 13.6 Seconds (9.4-12.1) H 02/11/17 00:01 - Impressions Impressions Hand CT 02/11/17 23:42 IMPRESSION: 1. There is an abscess noted along the dorsal aspect of the left hand, at the level of the carpals measuring approximately 2.3 x 0.7 x 2.3 cm. There is an adjacent cellulitis. 2. No evidence of osteomyelitis. D/ / 02/11/2017 07:57:13 Lio Sepulveda MD / [facility] Interpreting Provider: Lio Sepulveda MD - Attending Attestation Discontinue vancomycin and Zosyn Start doxycycline IV, awaiting cultures I examined this patient and my medical decision-making was reviewed with the Resident Physician. I agree with the documented findings, disposition and treatment plan as described except to the extent set forth below.
[2017-02-12 07:54] LABS: BUN/Creatinine Ratio 9 (6-26); Blood Urea Nitrogen 8 mg/dL (8-26); Calcium 9.5 mg/dL (8.6-10.8); Carbon Dioxide 22 mEq/L (19-29); Chloride 109 mEq/L (98-109); Glucose 90 mg/dL (70-99); Osmolality,Calculated 286 (280-300); Potassium 3.9 mEq/L (3.5-4.5); Sodium 139 mEq/L (136-145); eGFR For African Americans > 60 (> 60); eGFR For Non-African Americans > 60 (> 60)
--- NOTE | 2017-02-12 08:26 | Orthopedics Progress Note ---
Date of Encounter: 02/12/17 Time of Encounter: 08:25 - Assessment and Plan (1) Cellulitis of left hand Current Visit: Yes Status: Acute I did discuss the diagnosis in detail with the patient. His left dorsal hand cellulitis with abscess. Treatment options were discussed and my recommendation was for incision, drainage, irrigation, and debridement of the abscess with packing. We will perform this at the bedside under local anesthetic. I did discuss the risks include injury to veins, arteries, nerves, tendons, ligaments, bone, and persistent infection requiring further debridements including that needing to be done in the operating room. He did wish to proceed and consent will be obtained. He is currently on IV vancomycin and Zosyn per the hospitalist. Subjective Interval history: S: Expected pain to the left dorsal hand after I&D. No new issues overnight. O: Afebrile and the vital signs are stable Left dorsal hand I&D site looks good, without wound drainage. Redness has significantly improved. It were grossly flex and extend the digits with some limitation due to pain. The patient can actively flex and extend all digits, extend the thumb, cross the index and long fingers, make an okay sign, and oppose the thumb. The fingertips are all grossly sensate and well-perfused, and the radial artery pulse is 2+. Cultures are pending A: Post I&D of the left hand P: Continue local wound care with daily dressing and packing changes Follow wound cultures Antibiotics per the primary team Objective Vital signs: Vital Signs Temp Pulse Resp BP Pulse Ox 02/12/17 08:08 97.7 F 71 14 116/77 98 02/12/17 00:58 97.9 F 61 14 100/62 98 02/11/17 20:41 98.3 F 91 14 121/71 97 02/11/17 16:00 97.7 F 78 20 128/77 100 02/11/17 10:49 97.7 F 67 18 121/81 97 Intake and Output 02/11/17 02/12/17 02/12/17 23:59 07:59 15:59 Intake Total 1470 / 1470 1470 / 1470 Output Total 1150 / 1150 0 / 0 Balance 320 / 320 1470 / 1470 0 / 0 Intake: IV Fluids 1350 / 1350 1350 / 1350 0.9 % Sodium Chloride 1, 1000 / 1000 1000 / 1000 000 ML @ 125 mls/hr IVC . Q8H EMPERATRIZ Rx#:[id number] Zosyn 3.375 GM In 100 / 100 100 / 100 Dextrose 5% (Minibag+) 100 ML 100 ML @ 25 mls/hr IVPB Q8HR EMPERATRIZ Rx#: [id number] Vancocin 1,250 MG In 250 / 250 250 / 250 Dextrose 5% 250 ML @ 166. 667 mls/hr IVPB Q12H EMPERATRIZ Rx#:[id number] Oral 120 / 120 120 / 120 Output: Urine 1150 / 1150 0 / 0 Other: Meal Late Lunch Percent of Meal Consumed 25% # Voids 2 - Labs CBC & BMP: 02/11/17 00:01 02/12/17 07:09 Labs: Abnormal lab results WBC 14.0 K/mcL (4.3-11.1) H 02/11/17 00:01 Hgb 12.2 g/dL (12.9-16.9) L 02/11/17 00:01 Hct 36.0 % (37.5-50.1) L 02/11/17 00:01 MPV 9.3 fL (9.4-12.4) L 02/11/17 00:01 Neutrophils # 10.6 K/mcL (1.6-8.9) H 02/11/17 00:01 ESR 107 mm/hr (0-10) H 02/11/17 00:01 PT 13.6 Seconds (9.4-12.1) H 02/11/17 00:01 POC Glucose 108 (58-89) H 02/11/17 10:48 C-Reactive Protein 104 mg/L (Less than 5) H 02/11/17 00:11 Albumin 3.1 g/dL (3.5-5.0) L 02/11/17 00:11 Globulin 4.7 g/dL (2.4-3.5) H 02/11/17 00:11 Albumin/Globulin Ratio 0.7 (1.1-2.2) L 02/11/17 00:11 Consult Discharge Plan - Plan Referrals: Aj,Shankar Shipley MD [Primary Care Provider] - 02/20/17 11:00 am
[2017-02-12 08:27] LABS: Basophils # 0.1 K/mcL (0.0-0.2); Basophils % 0.7 %; Eosinophils # 0.2 K/mcL (0.0-0.6); Eosinophils % 2.2 %; Immature Granulocytes % 0.7 % (0-4); Mean Corpuscular HGB Conc 33.7 g/dL (31.6-35.5); Mean Corpuscular Hemoglobin 29.6 pg (28.0-33.3); Mean Corpuscular Volume 87.8 fL (83.0-100.0); Monocytes # 0.6 K/mcL (0.0-1.3); Neutrophils # 6.3 K/mcL (1.6-8.9); Platelet Count 357 K/mcL (140-400); Red Blood Count 4.67 M/mcL (4.19-5.50); Red Cell Distribution Width 12.6 % (11.5-14.5); Segmented Neutrophils % 61.4 %
[2017-02-12] MEDS: Piperacillin/Tazobactam 3.375 GM in D5% in Water (Mini-Bag+) 100 ML IVPB SCH (08:54)
[2017-02-12] MEDS: Ketorolac 30 MG/ML VIAL IVP PRN (08:54)
[2017-02-12 09:51] LABS: Hemoglobin 13.8 g/dL (12.9-16.9)
[2017-02-12 12:02] VITALS: BP 118/63
[2017-02-12] MEDS ORDERED: Doxycycline 100 MG in 0.9 % Sodium Chloride Mini Bag 100 ML IVPB SCH ×2 (14:20→18:00)
[2017-02-12] MEDS ORDERED: Aminoglycoside Consult 1 EACH MC ONE (16:09)
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
== END 2017-02-12 16:10 | disposition left against medical advice (07) ==
LOC: EMEROO 23:19 → 3ANU 23:19 → SUATTDRO 02-11 01:19 → 3ANU 02-11 01:49
PROVIDERS: ADMIT Family Medicine; ATTEND Internal Medicine

== ENCOUNTER 2018-12-14 00:33 | Observation (INO) ==
[2018-12-14] MEDS ORDERED: Ketorolac 15 MG/ML VIAL IVP ONE (01:02)
[2018-12-14] MEDS ORDERED: Piperacillin/Tazobactam 3.375 GM in 0.9 % Sodium Chloride Mini Bag 100 ML IVPB ONE (01:23)
[2018-12-14] MEDS ORDERED: 0.9 % Sodium Chloride 1,000 ML IVC ONE (01:24)
[2018-12-14] MEDS ORDERED: Isovue-370 500 ML BOTTLE IVP ONE (01:26)
[2018-12-14 01:52] LABS: Basophils % 0.4 %; Eosinophils % 0.3 %; Hematocrit 39.1 % (37.5-50.1); Hemoglobin 14.3 g/dL (12.9-16.9); Immature Granulocytes % 0.6 % (0-4); Lymphocytes # 0.6 K/mcL (0.6-4.6); Lymphocytes % 5.3 %; Mean Corpuscular HGB Conc 36.6 g/dL (31.6-35.5); Mean Corpuscular Hemoglobin 30.8 pg (28.0-33.3); Mean Corpuscular Volume 84.3 fL (83.0-100.0); Mean Platelet Volume 9.8 fL (9.4-12.4); Monocytes # 0.1 K/mcL (0.0-1.3); Monocytes % 1.3 %; Neutrophils # 9.8 K/mcL (1.6-8.9); Platelet Count 366 K/mcL (140-400); Red Blood Count 4.64 M/mcL (4.19-5.50); Red Cell Distribution Width 11.7 % (11.5-14.5); Segmented Neutrophils % 92.1 %; White Blood Count 10.7 K/mcL (4.3-11.1)
[2018-12-14] MEDS: 0.9 % Sodium Chloride 1,000 ML IVC ONE ×2 (01:55→03:26)
[2018-12-14 01:59] LABS: INR 1.3; Prothrombin Time 14.7 Seconds (9.4-12.1)
[2018-12-14 02:02] LABS: Activated Partial Thrombo Time 30.6 Seconds (26.0-36.0)
[2018-12-14 02:12] LABS: Alanine Aminotransferase 32 Units/L (7-52); Albumin 4.4 g/dL (3.5-5.7); Albumin/Globulin Ratio 1.3 (1.1-2.2); Alkaline Phosphatase 101 Units/L (34-104); Aspartate Amino Transferase 29 Units/L (13-39); BUN/Creatinine Ratio 16 (6-26); Bilirubin,Direct 0.3 mg/dL (0.0-0.2); Bilirubin,Indirect 0.8 mg/dL (0.0-1.2); Bilirubin,Total 1.1 mg/dL (0.3-1.0); Blood Urea Nitrogen 18 mg/dL (6-20); Calcium 9.9 mg/dL (8.6-10.3); Carbon Dioxide 21 mEq/L (23-29); Chloride 103 mEq/L (98-107); Globulin 3.4 g/dL (2.4-3.5); Glucose 108 mg/dL (70-105); Osmolality,Calculated 284 (280-300); Potassium 3.7 mEq/L (3.5-5.1); Sodium 136 mEq/L (136-145); Total Protein 7.8 g/dL (6.4-8.9); eGFR For African Americans > 60 (> 60); eGFR For Non-African Americans > 60 (> 60)
[2018-12-14 03:13] LABS: Bilirubin,Urine Small (Negative); Blood,Urine Negative (Negative); Clarity,Urine Clear (Clear); Color,Urine Dark Yellow (Yellow); Glucose,Urine (UA) Normal (Normal); Ketones,Urine Trace mg/dL (Negative); Leukocyte Esterase,Urine Negative (Negative); Nitrite,Urine Negative (Negative); Protein,Urine Trace mg/dL (Neg-Trace); Specific Gravity,Urine > 1.030 (1.010-1.025); Urobilinogen,Urine Normal (Normal)
[2018-12-14 03:16] LABS: Amphetamine Screen,Urine Positive ng/mL (Cutoff=1000); Barbiturate Screen,Urine Negative ng/mL (Cutoff=200); Benzodiazepines Screen,Urine Negative ng/mL (Cutoff=200); Cannabinoid Screen,Urine Positive ng/mL (Cutoff = 50); Cocaine Screen,Urine Negative ng/mL (Cutoff= 300); Opiate Screen,Urine Positive ng/mL (Cutoff=300); Phencyclidine Screen,Urine Negative ng/mL (Cutoff=25)
[2018-12-14] MEDS ORDERED: Acetaminophen 325 MG TABLET PO PRN (06:23)
[2018-12-14] MEDS ORDERED: Naloxone 0.4 MG/ML INJ IVP PRN (06:23)
[2018-12-14] MEDS ORDERED: *HR* Promethazine 25 MG/ML VIAL IVP PRN (06:23)
[2018-12-14] MEDS ORDERED: 0.9 % Sodium Chloride w KCl 20 MEQ/1,000 ML MLS IVC SCH (06:30)
[2018-12-14] MEDS ORDERED: *HR* LORazepam 1 MG TABLET PO PRN (08:53)
[2018-12-14] MEDS: Piperacillin/Tazobactam 3.375 GM in 0.9 % Sodium Chloride Mini Bag 100 ML IVPB SCH ×3 (09:00→23:50)
[2018-12-14] MEDS ORDERED: 0.9 % Sodium Chloride 1,000 ML ONE (09:01)
[2018-12-14] MEDS: 0.9 % Sodium Chloride 1,000 ML IVC SCH ×2 (10:06→18:43)
[2018-12-14] MEDS ORDERED: Perflutren Lipid Microsphere 1.3 ML in 0.9 % Sodium Chloride 8.7 ML IVP ONE (15:23)
[2018-12-14] MEDS: cloNIDine HCl 0.1 MG TABLET PO SCH (22:11)
[2018-12-15] MEDS: 0.9 % Sodium Chloride 1,000 ML IVC SCH ×4 (01:27→23:59)
[2018-12-15 01:44] LABS: Basophils % 0.3 %; Eosinophils # 0.3 K/mcL (0.0-0.6); Eosinophils % 2.6 %; Hematocrit 35.4 % (37.5-50.1); Immature Granulocytes % 0.4 % (0-4); Lymphocytes # 1.9 K/mcL (0.6-4.6); Lymphocytes % 19.5 %; Mean Corpuscular HGB Conc 34.2 g/dL (31.6-35.5); Mean Corpuscular Hemoglobin 30.3 pg (28.0-33.3); Mean Corpuscular Volume 88.5 fL (83.0-100.0); Mean Platelet Volume 9.9 fL (9.4-12.4); Monocytes # 0.7 K/mcL (0.0-1.3); Monocytes % 7.5 %; Neutrophils # 6.9 K/mcL (1.6-8.9); Platelet Count 277 K/mcL (140-400); Red Cell Distribution Width 11.7 % (11.5-14.5); Segmented Neutrophils % 69.7 %; White Blood Count 9.9 K/mcL (4.3-11.1)
[2018-12-15 01:45] LABS: Hemoglobin 12.1 g/dL (12.9-16.9)
[2018-12-15 02:05] LABS: Alanine Aminotransferase 20 Units/L (7-52); Albumin 3.3 g/dL (3.5-5.7); Albumin/Globulin Ratio 1.2 (1.1-2.2); Alkaline Phosphatase 68 Units/L (34-104); Aspartate Amino Transferase 16 Units/L (13-39); BUN/Creatinine Ratio 15 (6-26); Bilirubin,Total 0.4 mg/dL (0.3-1.0); Blood Urea Nitrogen 12 mg/dL (6-20); Calcium 8.2 mg/dL (8.6-10.3); Carbon Dioxide 21 mEq/L (23-29); Chloride 110 mEq/L (98-107); Chol/HDL Ratio 3.2 (0-4.9); Cholesterol 76 mg/dL (< 200); Globulin 2.7 g/dL (2.4-3.5); Glucose 136 mg/dL (70-105); HDL Cholesterol 24 mg/dL (40-59); LDL Cholesterol,Calculated 38 mg/dL (0-99); Magnesium 2.1 mg/dL (1.6-2.6); Osmolality,Calculated 288 (280-300); Potassium 3.5 mEq/L (3.5-5.1); Sodium 138 mEq/L (136-145); Triglycerides 70 mg/dL (< 150); eGFR For African Americans > 60 (> 60); eGFR For Non-African Americans > 60 (> 60)
[2018-12-15] MEDS: cloNIDine HCl 0.1 MG TABLET PO SCH ×2 (09:01→20:20)
[2018-12-15] MEDS: Piperacillin/Tazobactam 3.375 GM in 0.9 % Sodium Chloride Mini Bag 100 ML IVPB SCH ×3 (09:01→23:56)
[2018-12-15 18:25] LABS: Hepatitis B Surface Antigen Nonreactive (Nonreactive)
[2018-12-15 18:57] LABS: Hepatitis A Antibody IgM Nonreactive (Nonreactive)
[2018-12-15 19:00] LABS: Hepatitis B Core IgM Nonreactive (Nonreactive)
[2018-12-15 21:03] LABS: Hepatitis C Virus Antibody Reactive (Nonreactive)
[2018-12-16 07:58] VITALS: BP 123/46
[2018-12-16] MEDS: Piperacillin/Tazobactam 3.375 GM in 0.9 % Sodium Chloride Mini Bag 100 ML IVPB SCH (08:22)
[2018-12-16] MEDS: 0.9 % Sodium Chloride 1,000 ML IVC SCH (08:23)
[2018-12-16] MEDS: cloNIDine HCl 0.1 MG TABLET PO SCH (08:23)
[2018-12-16] MEDS ORDERED: Aminoglycoside Consult 1 EACH MC ONE (10:59)
== END 2018-12-16 11:00 | disposition home or self-care (01) ==
LOC: CDU 00:33 → EMEROOARM 00:33 → SUATTDRO 03:54 → CDU 04:55 → 3BNU 12-15 15:36
PROVIDERS: ADMIT Pediatrics; ATTEND Family Medicine

== ENCOUNTER 2019-01-18 23:06 | Inpatient (IN) ==
[2019-01-19] MEDS ORDERED: 0.9 % Sodium Chloride 1,000 ML IVC ONE ×2 (00:19→03:25)
[2019-01-19] MEDS ORDERED: Piperacillin/Tazobactam 3.375 GM in 0.9 % Sodium Chloride Mini Bag 100 ML IVPB ONE (00:19)
[2019-01-19] MEDS ORDERED: Isovue-370 500 ML BOTTLE IVP ONE (00:19)
[2019-01-19 01:03] LABS: Basophils % 0.2 %; Hematocrit 36.9 % (37.5-50.1); Hemoglobin 12.3 g/dL (12.9-16.9); Immature Granulocytes % 0.5 % (0-4); Lymphocytes # 0.4 K/mcL (0.6-4.6); Mean Corpuscular HGB Conc 33.3 g/dL (31.6-35.5); Mean Corpuscular Hemoglobin 29.5 pg (28.0-33.3); Mean Corpuscular Volume 88.5 fL (83.0-100.0); Mean Platelet Volume 9.8 fL (9.4-12.4); Monocytes # 0.3 K/mcL (0.0-1.3); Monocytes % 1.8 %; Neutrophils # 17.7 K/mcL (1.6-8.9); Platelet Count 403 K/mcL (140-400); Red Blood Count 4.17 M/mcL (4.19-5.50); Red Cell Distribution Width 12.2 % (11.5-14.5); Segmented Neutrophils % 95.5 %; White Blood Count 18.6 K/mcL (4.3-11.1)
[2019-01-19 01:11] LABS: INR 1.3; Prothrombin Time 14.7 Seconds (9.4-12.1)
[2019-01-19 01:13] LABS: Activated Partial Thrombo Time 29.5 Seconds (26.0-36.0)
[2019-01-19 01:19] LABS: Alanine Aminotransferase 26 Units/L (7-52); Albumin 3.6 g/dL (3.5-5.7); Alkaline Phosphatase 115 Units/L (34-104); Aspartate Amino Transferase 29 Units/L (13-39); BUN/Creatinine Ratio 17 (6-26); Bilirubin,Direct 0.2 mg/dL (0.0-0.2); Bilirubin,Indirect 0.4 mg/dL (0.0-1.2); Bilirubin,Total 0.6 mg/dL (0.3-1.0); Blood Urea Nitrogen 18 mg/dL (6-20); Calcium 9.1 mg/dL (8.6-10.3); Carbon Dioxide 22 mEq/L (23-29); Chloride 101 mEq/L (98-107); Globulin 3.7 g/dL (2.4-3.5); Glucose 123 mg/dL (70-105); Lipase 8 Units/L (11-82); Magnesium 1.6 mg/dL (1.6-2.6); Osmolality,Calculated 279 (280-300); Phosphorous 1.8 mg/dL (2.7-4.5); Potassium 3.3 mEq/L (3.5-5.1); Sodium 133 mEq/L (136-145); Total Protein 7.3 g/dL (6.4-8.9); Troponin I < 0.03 ng/mL (< 0.04); eGFR For African Americans > 60 (> 60); eGFR For Non-African Americans > 60 (> 60)
[2019-01-19 02:48] LABS: Bilirubin,Urine Negative (Negative); Blood,Urine Negative (Negative); Clarity,Urine Clear (Clear); Color,Urine Yellow (Yellow); Glucose,Urine (UA) Normal (Normal); Ketones,Urine Negative (Negative); Leukocyte Esterase,Urine Negative (Negative); Nitrite,Urine Negative (Negative); Protein,Urine Negative (Neg-Trace); Specific Gravity,Urine 1.025 (1.010-1.025); Urobilinogen,Urine Normal (Normal)
[2019-01-19] MEDS ORDERED: 0.9 % Sodium Chloride 500 ML IVC ONE (03:25)
[2019-01-19 03:52] LABS: Amphetamine Screen,Urine Positive ng/mL (Cutoff=1000); Barbiturate Screen,Urine Negative ng/mL (Cutoff=200); Benzodiazepines Screen,Urine Negative ng/mL (Cutoff=200); Cannabinoid Screen,Urine Negative ng/mL (Cutoff = 50); Cocaine Screen,Urine Negative ng/mL (Cutoff= 300); Opiate Screen,Urine Negative ng/mL (Cutoff=300); Phencyclidine Screen,Urine Negative ng/mL (Cutoff=25)
[2019-01-19] MEDS ORDERED: Acetaminophen 325 MG TABLET PO PRN (05:45)
[2019-01-19] MEDS ORDERED: Naloxone 0.4 MG/ML INJ IVP PRN (05:45)
[2019-01-19] MEDS ORDERED: Ondansetron 4 MG/2 ML VIAL IVP PRN (05:45)
[2019-01-19] MEDS ORDERED: Vancomycin (wt based) 1,000 MG VIAL IVPB SCH (06:00)
[2019-01-19] MEDS: *HR* Heparin 5,000 UNIT/ML VIAL SQ SCH ×2 (06:17→18:24)
[2019-01-19] MEDS: 0.9 % Sodium Chloride w KCl 20 MEQ/1,000 ML MLS IVC SCH ×2 (06:17→18:24)
[2019-01-19] MEDS ORDERED: Vancomycin 500 MG in 0.9 % Sodium Chloride Mini Bag 100 ML IVPB ONE (07:07)
[2019-01-19] MEDS: Piperacillin/Tazobactam 3.375 GM in 0.9 % Sodium Chloride Mini Bag 100 ML IVPB SCH ×3 (09:09→23:18)
[2019-01-19] MEDS ORDERED: Nicotine 14 MG PATCH.TD24 TD SCH (22:15)
[2019-01-20 04:23] LABS: Basophils % 0.4 %; Eosinophils # 0.1 K/mcL (0.0-0.6); Eosinophils % 1.4 %; Immature Granulocytes % 0.5 % (0-4); Lymphocytes # 2.1 K/mcL (0.6-4.6); Lymphocytes % 20.8 %; Mean Corpuscular HGB Conc 32.8 g/dL (31.6-35.5); Mean Corpuscular Hemoglobin 30.3 pg (28.0-33.3); Mean Corpuscular Volume 92.5 fL (83.0-100.0); Monocytes % 9.8 %; Neutrophils # 6.8 K/mcL (1.6-8.9); Platelet Count 282 K/mcL (140-400); Red Blood Count 3.46 M/mcL (4.19-5.50); Red Cell Distribution Width 12.4 % (11.5-14.5); Segmented Neutrophils % 67.1 %; White Blood Count 10.2 K/mcL (4.3-11.1)
[2019-01-20 04:29] LABS: Hemoglobin 10.5 g/dL (12.9-16.9)
[2019-01-20 04:35] LABS: INR 1.1; Prothrombin Time 12.2 Seconds (9.4-12.1)
[2019-01-20 04:38] LABS: Activated Partial Thrombo Time 31.4 Seconds (26.0-36.0)
[2019-01-20 04:40] LABS: Alanine Aminotransferase 18 Units/L (7-52); Albumin 2.9 g/dL (3.5-5.7); Alkaline Phosphatase 76 Units/L (34-104); Aspartate Amino Transferase 15 Units/L (13-39); BUN/Creatinine Ratio 11 (6-26); Bilirubin,Total 0.3 mg/dL (0.3-1.0); Blood Urea Nitrogen 11 mg/dL (6-20); Calcium 8.3 mg/dL (8.6-10.3); Carbon Dioxide 25 mEq/L (23-29); Chloride 111 mEq/L (98-107); Globulin 2.8 g/dL (2.4-3.5); Glucose 105 mg/dL (70-105); Magnesium 2.2 mg/dL (1.6-2.6); Osmolality,Calculated 296 (280-300); Phosphorous 3.2 mg/dL (2.7-4.5); Potassium 4.1 mEq/L (3.5-5.1); Sodium 143 mEq/L (136-145); Total Protein 5.7 g/dL (6.4-8.9); eGFR For African Americans > 60 (> 60); eGFR For Non-African Americans > 60 (> 60)
[2019-01-20] MEDS: *HR* Heparin 5,000 UNIT/ML VIAL SQ SCH (06:14)
[2019-01-20 07:13] VITALS: BP 110/68
[2019-01-20] MEDS: Piperacillin/Tazobactam 3.375 GM in 0.9 % Sodium Chloride Mini Bag 100 ML IVPB SCH (07:58)
[2019-01-20] MEDS ORDERED: Aminoglycoside Consult 1 EACH MC ONE (12:50)
[2019-01-20] MEDS ORDERED: cefTRIAXone 2,000 MG in 0.9 % Sodium Chloride Mini Bag 100 ML IVPB SCH (16:00)
[2019-01-20] MEDS ORDERED: MetroNIDAZOLE 500 MG/100 ML 500 MG/100 ML BAG IVPB SCH (16:00)
== END 2019-01-20 12:51 | disposition home or self-care (01) | DRG 710 ==
LOC: 2ANU 23:06 → EMEROOARM 23:06 → 2ANU 01-19 05:25 → SUATTDRO 01-19 05:45
PROVIDERS: ADMIT Internal Medicine Nephrology; ATTEND Internal Medicine